=== PATIENT | female | born 1930 | race Caucasian/White ===

== ENCOUNTER 2017-08-02 21:49 | Emergency (ER) | payer MEDICARE, BC ==
[~2017-08-02] VITALS: Ht 154.9 cm; Wt 65.8 kg
--- NOTE | 2017-08-02 21:55 | NUR ---
ABELINO FERRARO AT BEDSIDE FOR MSE. PT BIB [facility]. AAOX[facility]. PT SPEAKS IN COMPLETE SENTENCES. SPEECH CLEAR. PT RESPONSIVE TO VERBAL + TACTILE STIMULI. PT BROUGHT IN FOR SYNCOPAL EPISODE. PT STATES SHE WAS HAVING A BM ON THE TOILET AND STARTED TO FEEL NAUSEATED. SHE STATES SHE REACHED OVER TO GRAB A BAG AND HAD A SYNCOPAL EPISODE RESULTING IN FALLING OFF THE TOILET. PT DENIES SHE HIT HER HEAD. PT C/O LEFT KNEE AND SHEEHAN PAIN WITH NOTABLE KNEE BRUISING. PT PRESENTS WITH 20 GAUGE IV LEFT HAND. PT DENIES SOB/COUGH/CONGESTION. PT DENIES FEVER/CHILLS. PT DENIES CHEST PAIN. PT PLACED ON MONITOR. EKG COMPLETED. PT RESTING IN BED IN LOWEST POSITION. VSS.
[2017-08-02] MEDS ORDERED: PRILOSEC (22:05)
[2017-08-02] MEDS ORDERED: MONT10TA25 PO (22:05)
[2017-08-02] MEDS ORDERED: SIMVASTATIN (22:05)
[2017-08-02] MEDS ORDERED: ASPI81TA31 PO (22:05)
[2017-08-02] MEDS ORDERED: LEVO100T10 PO (22:05)
[2017-08-02] MEDS ORDERED: CITRACAL (22:05)
--- NOTE | 2017-08-02 22:58 | NUR ---
[facility] AT BEDSIDE FOR BLOOD DRAW
--- NOTE | 2017-08-02 23:08 | NUR ---
PT OUT OF ER FOR CT SCAN. NO ACUTE DISTRESS NOTED. PT'S SON & [id number] AT BEDSIDE.
[2017-08-02 23:30] LABS: BASOPHILS % (AUTO) 0.3 % (0.0-2.0); EOSINOPHILS # (AUTO) 0.1 K/uL (0.0-0.7); EOSINOPHILS % (AUTO) 1.2 % (0.0-7.0); HEMATOCRIT 27.7 % (31.2-41.9); HEMOGLOBIN 9.5 g/dL (10.9-14.3); LYMPHOCYTES % (AUTO) 10.1 % (20.5-51.5); MEAN CORPUSCULAR HEMOGLOBIN 32.4 uug (24.7-32.8); MEAN CORPUSCULAR HGB CONC 34 g/dL (32.3-35.6); MEAN CORPUSCULAR VOLUME 94.8 fL (75.5-95.3); MONOCYTES # (AUTO) 1.2 K/uL (2.0-10.0); NEUTROPHILS # (AUTO) 7.4 K/uL (1.8-8.9); NEUTROPHILS % (AUTO) 76.4 % (38.5-71.5); PLATELET COUNT (AUTO) 179 K/uL (179-408); RED BLOOD CELL COUNT(AUTO) 2.92 MIL/uL (3.63-4.92); WHITE BLOOD COUNT (AUTO) 9.7 K/uL (3.8-11.8)
--- NOTE | 2017-08-02 23:30 | NUR ---
PT BACK FROM CT SCAN. NO DISTRESS NOTED. PT PLACED ON MONITOR. PT GIVEN BEDPAN AT THIS TIME.
[2017-08-02 23:33] LABS: ALANINE AMINOTRANSFERASE 24 U/L (14-59); ALKALINE PHOSPHATASE 46 U/L (50-136); ASPARTATE AMINOTRANSFERASE 27 U/L (15-37); BILIRUBIN,DIRECT 0.1 mg/dL (0.0-0.2); BILIRUBIN,TOTAL 0.2 mg/dL (0.2-1.0); CARBON DIOXIDE 26 mmol/L (21-32); CHLORIDE 93 mmol/L (98-107); GLUCOSE 108 mg/dL (74-106); POTASSIUM 4.4 mmol/L (3.5-5.1); TOTAL PROTEIN, SERUM 6.4 g/dL (6.4-8.2); UREA NITROGEN, BLOOD 31 mg/dL (7-18)
--- NOTE | 2017-08-02 23:34 | NUR ---
CONTACT INFO: DANIEL (PT'S SON) #[phone]
--- NOTE | 2017-08-02 23:45 | NUR ---
PT RESTING COMFORTABLY IN BED WITH EYES CLOSED. VSS. NO ACUTE DISTRESS NOTED. AWAITING TEST RESULTS.
[2017-08-02 23:52] LABS: ACETAMINOPHEN < 2.0 ug/mL (10-30)
[2017-08-03 00:01] LABS: ETHANOL < 3 MG/DL (0-0)
[2017-08-03 00:03] LABS: THYROID STIMULATING HORMONE 3.183 mIU/mL (0.358-3.740)
--- NOTE | 2017-08-03 00:31 | NUR ---
CALLED [facility] TO TRANSPORT PT BACK TO [facility]. TRIP #[id number]. ETA - 30 MIN @ 0100.
--- NOTE | 2017-08-03 00:47 | NUR ---
CALLED [facility]. SPOKE TO JOLEEN AND NOTIFIED THAT PT WILL BE DISCHARGED FROM ER AND TRANSFERRED BACK TO THEIR FACILITY.
[2017-08-03 00:54] VITALS: BP 154/69
--- NOTE | 2017-08-03 00:55 | NUR ---
Patient discharged to home in stable conditon. Written and verbal after care instructions given. Patient verbalizes understanding of instructions. Pt left ER via [id number] for transport back to [facility]. IV removed. VSS. Denies syncope at this time. Respirations even + unlabored. No distress noted. Pt's son at bedside at time of discharge.
== END 2017-08-03 00:59 | disposition home or self-care (01) ==
LOC: ER 21:49
DX: R55 Syncope and collapse (principal); I10 Essential (primary) hypertension; E78.00 Pure hypercholesterolemia, unspecified; J45.909 Unspecified asthma, uncomplicated; E03.9 Hypothyroidism, unspecified; Z86.73 Personal history of transient ischemic attack (TIA), and cerebral infarction without residual deficits; Z88.0 Allergy status to penicillin; Z79.82 Long term (current) use of aspirin; Z79.899 Other long term (current) drug therapy; Z95.0 Presence of cardiac pacemaker
CPT/HCPCS: 36415; 70030-TC; 70450; 71045; 72125; 83605; 84443; 85025; 85730; 87040; 93005; A4663; G0480; G0480-TC